=== PATIENT | female | born 1980 | race Caucasian/White ===

== ENCOUNTER 2019-04-15 18:17 | Emergency (ER) | payer BC ==
[~2019-04-15] VITALS: Ht 157.5 cm; Wt 72.1 kg
[2019-04-15 18:20] VITALS: Ht 157.5 cm; Wt 72.1 kg
[2019-04-15 20:02] LABS: CALCIUM 8.9 mg/dL (8.5-10.1); CARBON DIOXIDE 30.3 mmol/L (21-32); CHLORIDE SERUM 103 mmol/L (98-107); CREATININE SERUM 0.6 mg/dL (0.6-1.0); GFR1 > 60 mL/min; GLUCOSE SERUM 303 mg/dL (74-106); POTASSIUM SERUM 3.8 mmol/L (3.5-5.1); SODIUM SERUM 140 mmol/L (136-145)
[2019-04-15 20:03] LABS: BASOPHIL % 0.3 % (0-2); PLATELET COUNT 338 x10^3mcL (130-400); RED CELL DISTRIBUTION WIDTH 12.5 % (11.5-14.5)
[2019-04-15 20:07] LABS: ALBUMIN 3.7 g/dL (3.4-5.0); ALKALINE PHOSPHATASE 106 U/L (46-116); ALT/SGPT 17 U/L (14-59); AST/SGOT 6 U/L (15-37); BILIRUBIN TOTAL 0.4 mg/dL (0.20-1.00); LIPASE 68 IU/L (73-393); TOTAL PROTEIN, SERUM 7.2 g/dL (6.4-8.2)
[2019-04-15 20:31] LABS: UA SPECIFIC GRAVITY 1.025 (1.005-1.035); microscopic required? YES; urine erythrocyte 1+ (NEGATIVE)
[2019-04-15 23:12] VITALS: BP 125/76
== END 2019-04-15 23:12 | disposition home or self-care (01) ==
LOC: ED 18:17
PROVIDERS: Emergency Medicine
DX: K29.70 Gastritis, unspecified, without bleeding (principal); Z90.49 Acquired absence of other specified parts of digestive tract
CPT/HCPCS: J1885; J2405; J2765; J3490; J7030

== ENCOUNTER 2019-04-20 13:30 | Emergency (ER) | payer BC ==
[~2019-04-20] VITALS: Ht 157.5 cm; Wt 69.9 kg
[2019-04-20 13:50] VITALS: Ht 157.5 cm; Wt 69.9 kg
[2019-04-20 14:25] LABS: BASOPHIL % 0.3 % (0-2); PLATELET COUNT 340 x10^3mcL (130-400); RED CELL DISTRIBUTION WIDTH 12.7 % (11.5-14.5)
[2019-04-20 14:50] LABS: CALCIUM 9.2 mg/dL (8.5-10.1); CARBON DIOXIDE 28.2 mmol/L (21-32); CHLORIDE SERUM 103 mmol/L (98-107); CREATININE SERUM 0.6 mg/dL (0.6-1.0); GFR1 > 60 mL/min; GLUCOSE SERUM 202 mg/dL (74-106); POTASSIUM SERUM 3.6 mmol/L (3.5-5.1); SODIUM SERUM 142 mmol/L (136-145)
[2019-04-20 14:54] LABS: ALBUMIN 3.8 g/dL (3.4-5.0); ALKALINE PHOSPHATASE 83 U/L (46-116); ALT/SGPT 19 U/L (14-59); AST/SGOT 11 U/L (15-37); BILIRUBIN TOTAL 0.5 mg/dL (0.20-1.00); LIPASE 93 IU/L (73-393); TOTAL PROTEIN, SERUM 7.2 g/dL (6.4-8.2)
[2019-04-20 16:16] VITALS: BP 134/87
== END 2019-04-20 16:17 | disposition home or self-care (01) ==
LOC: ED 13:30
PROVIDERS: Emergency Medicine
DX: R11.2 Nausea with vomiting, unspecified (principal); E11.9 Type 2 diabetes mellitus without complications; Z90.49 Acquired absence of other specified parts of digestive tract; Z98.890 Other specified postprocedural states
CPT/HCPCS: 82962; J2405; J7030

== ENCOUNTER 2019-08-16 02:00 | Emergency (ER) | payer BC ==
[~2019-08-16] VITALS: Ht 157.5 cm; Wt 62.6 kg
[2019-08-16 03:47] LABS: BASOPHIL % 0.4 % (0-2); PLATELET COUNT 394 x10^3mcL (130-400); RED CELL DISTRIBUTION WIDTH 12.5 % (11.5-14.5)
[2019-08-16 03:59] LABS: CALCIUM 8.8 mg/dL (8.5-10.1); CARBON DIOXIDE 31.2 mmol/L (21-32); CHLORIDE SERUM 104 mmol/L (98-107); CREATININE SERUM 0.7 mg/dL (0.6-1.0); GFR1 > 60 mL/min; GLUCOSE SERUM 70 mg/dL (74-106); POTASSIUM SERUM 3.6 mmol/L (3.5-5.1); SODIUM SERUM 142 mmol/L (136-145)
[2019-08-16 04:05] LABS: ALBUMIN 3.8 g/dL (3.4-5.0); ALKALINE PHOSPHATASE 80 U/L (46-116); ALT/SGPT 10 U/L (14-59); AMYLASE 42 U/L (25-115); AST/SGOT 10 U/L (15-37); BILIRUBIN TOTAL 0.3 mg/dL (0.20-1.00); LIPASE 76 IU/L (73-393); TOTAL PROTEIN, SERUM 7.3 g/dL (6.4-8.2)
[2019-08-16 05:23] VITALS: BP 131/89
== END 2019-08-16 05:23 | disposition home or self-care (01) ==
LOC: ED 02:00
PROVIDERS: Emergency Medicine
DX: E11.43 Type 2 diabetes mellitus with diabetic autonomic (poly)neuropathy (principal); K31.84 Gastroparesis; Z90.49 Acquired absence of other specified parts of digestive tract; Z98.890 Other specified postprocedural states
CPT/HCPCS: 82962; J1200; J2765; J3490

== ENCOUNTER 2019-10-03 16:59 | Emergency (ER) | payer BC ==
[~2019-10-03] VITALS: Ht 157.5 cm; Wt 58.1 kg
[2019-10-03 17:06] VITALS: Ht 157.5 cm; Wt 58.1 kg
[2019-10-03 19:37] VITALS: BP 120/91
== END 2019-10-03 19:37 | disposition home or self-care (01) ==
LOC: ED 16:59
DX: K59.00 Constipation, unspecified (principal); R11.10 Vomiting, unspecified; E11.9 Type 2 diabetes mellitus without complications; Z90.49 Acquired absence of other specified parts of digestive tract; Z98.890 Other specified postprocedural states
CPT/HCPCS: J1885

== ENCOUNTER 2019-10-21 20:33 | Emergency (ER) | payer BC ==
[~2019-10-21] VITALS: Ht 157.5 cm; Wt 58.5 kg
[2019-10-21 21:02] VITALS: Ht 157.5 cm; Wt 58.5 kg
[2019-10-21 21:47] LABS: microscopic required? NO
[2019-10-21 21:53] LABS: urine erythrocyte NEGATIVE (NEGATIVE)
[2019-10-21 22:01] LABS: AMPHETAMINE QUAL UR NONE DETECTED (See below)
[2019-10-21 22:08] LABS: BASOPHIL % 0.2 % (0-2); PLATELET COUNT 412 x10^3mcL (130-400); RED CELL DISTRIBUTION WIDTH 13.6 % (11.5-14.5)
[2019-10-21 22:16] LABS: CALCIUM 9.1 mg/dL (8.5-10.1); CHLORIDE SERUM 103 mmol/L (98-107); CREATININE SERUM 0.6 mg/dL (0.6-1.0); GFR1 > 60 mL/min; GLUCOSE SERUM 154 mg/dL (74-106); POTASSIUM SERUM 3.6 mmol/L (3.5-5.1); SODIUM SERUM 139 mmol/L (136-145)
[2019-10-21 22:21] LABS: ALKALINE PHOSPHATASE 73 U/L (46-116); ALT/SGPT 20 U/L (14-59); AST/SGOT 12 U/L (15-37); BILIRUBIN TOTAL 0.5 mg/dL (0.20-1.00); LIPASE 72 IU/L (73-393); TOTAL PROTEIN, SERUM 7.6 g/dL (6.4-8.2)
[2019-10-21 23:47] VITALS: BP 103/65
== END 2019-10-21 23:47 | disposition home or self-care (01) ==
LOC: ED 20:33
PROVIDERS: Emergency Medicine
DX: E11.43 Type 2 diabetes mellitus with diabetic autonomic (poly)neuropathy (principal); K31.84 Gastroparesis; R10.10 Upper abdominal pain, unspecified
CPT/HCPCS: J2765; J3010; J3490; J7030

== ENCOUNTER 2019-10-23 06:54 | Emergency (ER) | payer BC ==
[~2019-10-23] VITALS: Ht 157.5 cm; Wt 57.2 kg
[2019-10-23 06:58] VITALS: Ht 157.5 cm; Wt 57.2 kg
[2019-10-23 07:43] LABS: BASOPHIL % 0.2 % (0-2); PLATELET COUNT 366 x10^3mcL (130-400); RED CELL DISTRIBUTION WIDTH 13.3 % (11.5-14.5)
[2019-10-23 09:23] LABS: ALBUMIN 3.9 g/dL (3.4-5.0); ALKALINE PHOSPHATASE 69 U/L (46-116); ALT/SGPT 19 U/L (14-59); AST/SGOT 11 U/L (15-37); BILIRUBIN TOTAL 0.45 mg/dL (0.20-1.00); CALCIUM 9.3 mg/dL (8.5-10.1); CHLORIDE SERUM 101 mmol/L (98-107); CREATININE SERUM 0.6 mg/dL (0.6-1.0); GFR1 > 60 mL/min; GLUCOSE SERUM 161 mg/dL (74-106); LIPASE 79 IU/L (73-393); SODIUM SERUM 139 mmol/L (136-145); TOTAL PROTEIN, SERUM 7.4 g/dL (6.4-8.2)
[2019-10-23 11:07] VITALS: BP 123/83
== END 2019-10-23 11:07 | disposition home or self-care (01) ==
LOC: ED 06:54
PROVIDERS: Emergency Medicine
DX: E11.43 Type 2 diabetes mellitus with diabetic autonomic (poly)neuropathy (principal); K31.84 Gastroparesis; E86.0 Dehydration; M54.9 Dorsalgia, unspecified; Z87.19 Personal history of other diseases of the digestive system
CPT/HCPCS: J1885; J2405; J3010; J7030

== ENCOUNTER 2019-11-23 10:16 | Emergency (ER) | payer BC ==
[~2019-11-23] VITALS: Ht 157.5 cm; Wt 54.4 kg
[2019-11-23 12:42] LABS: CALCIUM 8.8 mg/dL (8.5-10.1); CARBON DIOXIDE 28.7 mmol/L (21-32); CHLORIDE SERUM 98 mmol/L (98-107); CREATININE SERUM 0.6 mg/dL (0.6-1.0); GFR1 > 60 mL/min; GLUCOSE SERUM 128 mg/dL (74-106); POTASSIUM SERUM 3.3 mmol/L (3.5-5.1); SODIUM SERUM 134 mmol/L (136-145)
[2019-11-23 12:46] LABS: BASOPHIL % 0.3 % (0-2); PLATELET COUNT 374 x10^3mcL (130-400); RED CELL DISTRIBUTION WIDTH 14.4 % (11.5-14.5)
[2019-11-23 12:47] LABS: ALKALINE PHOSPHATASE 79 U/L (46-116); ALT/SGPT 23 U/L (14-59); AST/SGOT 27 U/L (15-37); BILIRUBIN TOTAL 0.5 mg/dL (0.20-1.00); LIPASE 56 IU/L (73-393); TOTAL PROTEIN, SERUM 7.6 g/dL (6.4-8.2)
[2019-11-23 13:39] LABS: microscopic required? NO
[2019-11-23 14:08] VITALS: BP 125/84
[2019-11-23 14:10] LABS: UA SPECIFIC GRAVITY 1.025 (1.005-1.035); urine erythrocyte NEGATIVE (NEGATIVE)
== END 2019-11-23 14:09 | disposition home or self-care (01) ==
LOC: ED 10:16
PROVIDERS: Emergency Medicine
DX: E11.43 Type 2 diabetes mellitus with diabetic autonomic (poly)neuropathy (principal); K31.84 Gastroparesis; Z98.890 Other specified postprocedural states
CPT/HCPCS: 36415; 82962

== ENCOUNTER 2020-06-27 00:50 | Emergency (ER) | payer BC ==
[~2020-06-27] VITALS: Ht 157.5 cm; Wt 52.6 kg
[2020-06-27 00:58] VITALS: Ht 157.5 cm; Wt 52.6 kg
[2020-06-27 03:07] VITALS: BP 123/78
== END 2020-06-27 03:07 | disposition home or self-care (01) ==
LOC: ED 00:50
DX: K31.84 Gastroparesis (principal); R11.2 Nausea with vomiting, unspecified
CPT/HCPCS: J2405; J3010; J7030

== ENCOUNTER 2020-07-09 12:29 | Inpatient (IN) | payer BC ==
[~2020-07-09] VITALS: Ht 157.5 cm; Wt 52.2 kg
--- NOTE | 2020-07-09 12:39 | NUR ---
PT RETURNED TO LOBBY, NAD NOTED.
--- NOTE | 2020-07-09 13:26 | NUR ---
PLACED IN BED 11 FOR EVAL.
--- NOTE | 2020-07-09 13:34 | NUR ---
DR HEATH AT BEDSIDE FOR MSE.
--- NOTE | 2020-07-09 15:18 | NUR ---
IS OKAY WITH ICE CHIPS. PATIENT ASKED FOR ICE CHIPS. PATIENT STARTED VOMITING AFTER ICE CHIPS, PROVIDER IS AWARE.
[2020-07-09 15:40] LABS: BASOPHIL % 0.5 % (0-2); PLATELET COUNT 342 x10^3mcL (130-400)
[2020-07-09 15:45] LABS: RED CELL DISTRIBUTION WIDTH 15.3 % (11.5-14.5)
--- NOTE | 2020-07-09 16:12 | NUR ---
PATIENT WITH UPPER BACK PAIN AND WITH NAUSEA. PROVIDER IS AWARE OF PAIN MEDICATION AND NAUSEA MEDICATION REQUESTED BY THE PATIENT, LUNGS ARE CLEAR.
[2020-07-09 16:29] LABS: CALCIUM 8.1 mg/dL (8.5-10.1); CARBON DIOXIDE 27.7 mmol/L (21-32); CHLORIDE SERUM 96 mmol/L (98-107); CREATININE SERUM 0.5 mg/dL (0.6-1.0); GFR1 > 60 mL/min; GLUCOSE SERUM 118 mg/dL (74-106); SODIUM SERUM 126 mmol/L (136-145)
[2020-07-09 16:33] LABS: ALBUMIN 3.5 g/dL (3.4-5.0); ALKALINE PHOSPHATASE 60 U/L (46-116); ALT/SGPT 16 U/L (14-59); AST/SGOT 14 U/L (15-37); BILIRUBIN TOTAL 0.3 mg/dL (0.20-1.00); HDL CHOLESTEROL 51 mg/dL (40-60); LIPASE 77 IU/L (73-393); TOTAL PROTEIN, SERUM 6.6 g/dL (6.4-8.2)
[2020-07-09 16:34] LABS: CHOLESTEROL 128 mg/dL (<200)
[2020-07-09 17:18] LABS: microscopic required? NO
--- NOTE | 2020-07-09 17:22 | NUR ---
PATIENT HAS NO PAIN AT THIS TIME BUT STILL WITH LITTLE NAUSEA.
[2020-07-09 17:38] LABS: urine erythrocyte NEGATIVE (NEGATIVE)
[2020-07-09 18:00] LABS: AMPHETAMINE QUAL UR NONE DETECTED (See below)
--- NOTE | 2020-07-09 19:32 | NUR ---
REPORT GIVEN TO KAREN HILLMAN
[2020-07-09 22:16] LABS: MAGNESIUM 1.8 mg/dL (1.8-2.4); PHOSPHOROUS 2.6 mg/dL (2.5-4.9)
[2020-07-09 22:19] LABS: CHOLESTEROL/HDL RATIO 2.6
--- NOTE | 2020-07-09 22:35 | NUR ---
PATIENT HAS PURSE WITH 3 DOLLARS, SUN GLASSES, PAIR OF KAYLEN EARING AND KAYLEN RING, CELL PHONE, SHIRT, PANTS, SHOES.
[2020-07-09] MEDS ORDERED: GLIPIZIDE XL2.5 M1 PO (22:36)
[2020-07-09] MEDS ORDERED: REG50I PO (22:37)
--- NOTE | 2020-07-09 23:17 | NUR ---
PER NIKKO FROM LABORATORY PATIENT COVID NEGATIVE.
--- NOTE | 2020-07-10 00:10 | NUR ---
RECEIVED PT FROM ED VIA [facility], CAME IN DUE TO VOMITING X3 DAYS. AAOX4. STAED THAT SHE HAS MILD LIGHTHEADEDNESS. ABLE TO FOLLOW COMMANDS. NO SOB NOTED. LUNG SOUNDS CTA. O2 SAT=98%, RA. C/O DRY MOUTH, DENIES DIFFICULTY SWALLOWING. DENIES CHEST PAIN/PRESSURE, SR ON THE MONITOR. DENIES ABDOMINAL PAIN. C/O MILD NAUSEA AND CONSTIPATION, ABLE TO PASS GAS, LAST BM=07/09/20. ABDOMEN IS SOFT. BOWEL SOUNDS HYPOACTIVE. VOIDS. IV SITE PATENT AND INTACT. C/O 5/10 UPPER BACK PAIN. SIDE RAILS UPX2. CALL LIGHT ON REACH. WILL ENDORSE TO PRIMARY NURSE JAVED FOR CONTINUITY OF CARE
[2020-07-10 00:21] VITALS: BP 118/76
[2020-07-10 00:27] VITALS: Ht 157.5 cm; Wt 52.2 kg
--- NOTE | 2020-07-10 01:37 | NUR ---
RECEIVED PATIENT FROM ED, NOT IN ANY FORM OF DISTRESS, RESPIRATIONS EVEN AND UNLABORED, NO VOMITTING AT THIS TIME, MEDS GIVEN ORDERED, IVF OF NS AT 100 ML/HR STARTED, REPLACED POTASSIUM WITH 40 MEQS PO, MAINTAINED ON NPO EXCEPT MEDS, WILL CONTINUE TO MONITOR PT.
[2020-07-10 05:29] VITALS: BP 123/79
--- NOTE | 2020-07-10 06:39 | NUR ---
PT RESTING COMFORTABLY, NO NAUSEA/VOMITING NOTED, TOLERATING ICE CHIPS, FINGERSTICK DONE, NO COVERAGE NEEDED AT THIS TIME. WILL ENDORSE TO INCOMING RN.
--- NOTE | 2020-07-10 07:30 | NUR ---
PT. RECEIVED IN BED ALERT AND ORIENTED*4. CARE ASSURED.PT DENIES ANY ABD DISCOMFORT,NAUSEA OR VOMITING.KEPT NPO EXCEPT MEDS.NO ACUTE DISTRESS NOTED.IVF NS @ 100CC/HR, INFUSING.SKIN WARM AND DRY TO TOUCH.B/P STABLE.AFEBRILE.
[2020-07-10 08:09] LABS: CALCIUM 8.2 mg/dL (8.5-10.1); CARBON DIOXIDE 23.4 mmol/L (21-32); CHLORIDE SERUM 105 mmol/L (98-107); CREATININE SERUM 0.5 mg/dL (0.6-1.0); GFR1 > 60 mL/min; GLUCOSE SERUM 88 mg/dL (74-106); POTASSIUM SERUM 4.1 mmol/L (3.5-5.1); SODIUM SERUM 137 mmol/L (136-145)
[2020-07-10 08:48] VITALS: BP 116/70
[2020-07-10 12:32] VITALS: BP 145/82
[2020-07-10 16:35] VITALS: BP 151/67
[2020-07-10 20:37] VITALS: BP 148/83
--- NOTE | 2020-07-11 00:35 | NUR ---
PATIENT WITH COMPLAINTS OF NAUSEA AND VOMITING, PATIENT STATES MILD VOMITING, AND MODERATE NAUSEA. PATIENT REPORTS IMPROVEMENT WITH IVP REGLAN AND ZOFRAN. PO AMBIEN GIVEN PER PATIENT REQUEST TO SLEEP
[2020-07-11 05:39] VITALS: BP 131/86
[2020-07-11 07:00] LABS: BASOPHIL % 0.2 % (0-2); PLATELET COUNT 294 x10^3mcL (130-400)
[2020-07-11 07:13] LABS: RED CELL DISTRIBUTION WIDTH 15.1 % (11.5-14.5)
[2020-07-11 07:14] LABS: CALCIUM 8.6 mg/dL (8.5-10.1); CARBON DIOXIDE 26.1 mmol/L (21-32); CHLORIDE SERUM 104 mmol/L (98-107); CREATININE SERUM 0.5 mg/dL (0.6-1.0); GFR1 > 60 mL/min; GLUCOSE SERUM 102 mg/dL (74-106); MAGNESIUM 1.9 mg/dL (1.8-2.4); PHOSPHOROUS 2.8 mg/dL (2.5-4.9); POTASSIUM SERUM 3.8 mmol/L (3.5-5.1); SODIUM SERUM 137 mmol/L (136-145)
--- NOTE | 2020-07-11 08:00 | NUR ---
pt received in bed alert and oriented*4.no acute distress noted.pt eating oranges @ this time.no c/o nausea and/or vomiting or abd discomfort.pt anxious about distress home today.care assured.vss.afebrile.needs are being met.
[2020-07-11 08:31] VITALS: BP 135/90
[2020-07-11 14:08] VITALS: BP 136/91
[2020-07-11 16:11] VITALS: BP 136/91
--- NOTE | 2020-07-11 16:47 | NUR ---
PT DISCHARGED HOME IN STABLE CONDITION,DENIES NAUSEA AND/OR VOMITING.DISCHARGE INSTRUCTIONS GIVEN TO PT AND PT VERBALIZES UNDERSTANDING,INCLUDING FOLLOW UP APPOINTMENTS ANDCONTINUING TWO HOME MEDICATIONS.ALL BELONGING SENT HOME WITH PT, ACCOMPANY HOME BY FAMILY.
== END 2020-07-11 16:35 | disposition home or self-care (01) | DRG 74 ==
LOC: ED 12:29 → DU 18:57
PROVIDERS: Emergency Medicine; ADMIT Family Medicine; ATTEND Family Medicine
DX: E11.43 Type 2 diabetes mellitus with diabetic autonomic (poly)neuropathy (principal); E87.1 Hypo-osmolality and hyponatremia; K31.84 Gastroparesis; E11.65 Type 2 diabetes mellitus with hyperglycemia; E87.6 Hypokalemia; Z20.828 Contact with and (suspected) exposure to other viral communicable diseases; Z90.49 Acquired absence of other specified parts of digestive tract; Z82.49 Family history of ischemic heart disease and other diseases of the circulatory system; Z79.84 Long term (current) use of oral hypoglycemic drugs; Z83.3 Family history of diabetes mellitus
CPT/HCPCS: 82962; C9113; G0378; J0500; J1364; J1630; J2060; J2270; J2405; J2765; J3490; J7030; Q0092

== ENCOUNTER 2020-12-03 20:06 | Emergency (ER) | payer BC, SELFPAY ==
[~2020-12-03] VITALS: Ht 157.5 cm; Wt 52.6 kg
[~2020-12-03 20:06] MED LIST: GLIPIZIDE XL2.5 M1 PO; REG50I PO
[2020-12-03 20:08] VITALS: Ht 157.5 cm; Wt 52.6 kg
[2020-12-03 21:21] LABS: BASOPHIL % 0.3 % (0.2-1.3)
[2020-12-03 21:35] LABS: PLATELET COUNT 473 x10^3mcL (179-408); RED CELL DISTRIBUTION WIDTH 21.7 % (12.3-17.7)
[2020-12-03 22:14] LABS: CALCIUM 8.5 mg/dL (8.5-10.1); CARBON DIOXIDE 26.1 mmol/L (21-32); CHLORIDE SERUM 99 mmol/L (98-107); CREATININE SERUM 0.8 mg/dL (0.6-1.0); GFR1 > 60 mL/min; GLUCOSE SERUM 187 mg/dL (74-106); POTASSIUM SERUM 3.1 mmol/L (3.5-5.1); SODIUM SERUM 136 mmol/L (136-145)
[2020-12-03 22:18] LABS: ALBUMIN 4.2 g/dL (3.4-5.0); ALKALINE PHOSPHATASE 96 U/L (46-116); ALT/SGPT 24 U/L (14-59); AST/SGOT 18 U/L (15-37); BILIRUBIN TOTAL 0.5 mg/dL (0.20-1.00); LIPASE 58 IU/L (73-393); TOTAL PROTEIN, SERUM 7.7 g/dL (6.4-8.2)
[2020-12-03 22:22] LABS: CHOLESTEROL 132 mg/dL (<200); HDL CHOLESTEROL 69 mg/dL (40-60)
[2020-12-03 22:29] LABS: rbc morphology (normal/abnorm) ABNORMAL (NORMAL)
[2020-12-03 23:47] LABS: UA SPECIFIC GRAVITY >=1.030 (1.005-1.035); microscopic required? YES; urine erythrocyte TRACE (NEGATIVE)
[2020-12-04 00:05] LABS: AMPHETAMINE QUAL UR NONE DETECTED (See below)
[2020-12-04 00:30] VITALS: BP 144/85
== END 2020-12-04 00:30 | disposition home or self-care (01) ==
LOC: ED 20:06
PROVIDERS: Emergency Medicine
DX: K31.84 Gastroparesis (principal); E87.6 Hypokalemia; D64.9 Anemia, unspecified; Z20.828 Contact with and (suspected) exposure to other viral communicable diseases; Z90.49 Acquired absence of other specified parts of digestive tract; Z98.84 Bariatric surgery status
CPT/HCPCS: 36600; J1630; J2060; J7030; U0003

== ENCOUNTER 2021-01-03 03:12 | Emergency (ER) | payer BC ==
[~2021-01-03] VITALS: Ht 162.6 cm; Wt 52.6 kg
[2021-01-03 03:24] VITALS: Ht 162.6 cm; Wt 52.6 kg
[2021-01-03 04:45] LABS: BASOPHIL % 0.4 % (0.2-1.3)
[2021-01-03 04:46] LABS: PLATELET COUNT 490 x10^3mcL (179-408); RED CELL DISTRIBUTION WIDTH 19.2 % (12.3-17.7)
[2021-01-03 04:47] LABS: rbc morphology (normal/abnorm) NORMAL (NORMAL)
[2021-01-03 05:10] LABS: ALBUMIN 4.3 g/dL (3.4-5.0); ALKALINE PHOSPHATASE 100 U/L (46-116); ALT/SGPT 20 U/L (14-59); AST/SGOT 17 U/L (15-37); BILIRUBIN TOTAL 0.34 mg/dL (0.20-1.00); CALCIUM 8.9 mg/dL (8.5-10.1); CARBON DIOXIDE 27.7 mmol/L (21-32); CHLORIDE SERUM 100 mmol/L (98-107); CREATININE SERUM 0.8 mg/dL (0.6-1.0); GFR1 > 60 mL/min; GLUCOSE SERUM 175 mg/dL (74-106); LIPASE 103 IU/L (73-393); POTASSIUM SERUM 3.2 mmol/L (3.5-5.1); SODIUM SERUM 139 mmol/L (136-145); TOTAL PROTEIN, SERUM 7.8 g/dL (6.4-8.2)
[2021-01-03] MEDS ORDERED: ATIVAN1 MG PO (06:47)
[2021-01-03] MEDS ORDERED: REGLAN10 M1 PO (06:47)
[2021-01-03 08:46] VITALS: BP 127/81
== END 2021-01-03 08:46 | disposition home or self-care (01) ==
LOC: ED 03:12
PROVIDERS: Emergency Medicine
DX: K31.84 Gastroparesis (principal); E87.6 Hypokalemia; E11.9 Type 2 diabetes mellitus without complications; Z90.49 Acquired absence of other specified parts of digestive tract; Z87.19 Personal history of other diseases of the digestive system; Z98.890 Other specified postprocedural states
CPT/HCPCS: J2060; J2765; J7030